=== PATIENT | female | born 1985 | race Caucasian/White ===

== ENCOUNTER → 2019-02-09 13:23 | Outpatient (CLI) | payer MEDICAID, SELFPAY ==
[2019-02-13 13:07] LABS: Age Gdln ACOG Testing 30-65 (.)
[2019-02-13 15:56] LABS: HPV APTIMA, High Risk Negative (Negative)
[2019-02-13 15:57] LABS: HPV Reflexed? YES, CHARGE PATIENT
== END ==
PROVIDERS: Visit Provider Obstetrics & Gynecology
DX: Z12.4 Encounter for screening for malignant neoplasm of cervix (principal)
CPT/HCPCS: 87624; 88175; G0145

== ENCOUNTER → 2023-02-26 | Outpatient (CLI) | payer MEDICAID, SELFPAY ==
--- NOTE | 2023-02-26 11:30 | US_ITS ---
EXAM: US PELVIS TRANSVAGINAL CLINICAL INDICATION: abnormal uterine bleeding TECHNIQUE: Transvaginal pelvic ultrasound was performed with grayscale and color Doppler imaging. Transvaginal imaging was used for better evaluation of the endometrium and adnexa. COMPARISON: No relevant prior studies available. FINDINGS: UTERUS/CERVIX: Uterus measures 4.6 x 9.9 x 6.7 cm. The endometrium measures 3 mm. There is a 5 x 5 x 7 mm echogenic structure in the endometrium which may represent a clot or possibly an endometrial polyp. Anteverted. There is no uterine mass. RIGHT OVARY: The right ovary measures 3.1 x 4.4 x 3.0 cm. Blood flow is present in the right ovary. LEFT OVARY: Left ovary measures 2.1 x 2.9 x 2.2 cm. Blood flow is present in the left ovary. FREE FLUID: None. BLADDER: Empty bladder which cannot be evaluated with this probe. US/Transvaginal Non- IMPRESSION: Echogenic structure in the endometrium which may represent a small clot or perhaps a polyp. If indicated further evaluation with MRI may be beneficial. Electronically Signed: Gio Suárez MD at 0:07 EST ,
--- OUTSIDE RECORDS SUMMARY | 2023-02-26 11:30 | XMS RPT_ITS | CCD ---
Author Name Unknown Address [address] [place] [address] Organization [facility] Care Team Providers Care User Interface Artist Name Role Phone DR АЛЕКСАНДР PRIEST DO Primary Care Physician Shara Blanchard Primary Care Provider [phone] SHARA BLANCHARD Primary Care Unavailabl RANJEET Fortune Attending Unavailable Medications Current Medications Medication Drug Class(es) Dates Sig (Normalized) Sig (Original) amoxicillin 875 mg oral tablet (1 source) Penicillin-class Antibacterial Start: 11-04-2022 End: 11-14-2022 take 1 tablet by mouth twice daily amoxicillin (AMOXIL) 875 mg tablet Indications: Acute non-recurrent maxillary sinusitis Take 1 tablet by mouth twice daily for 10 days. 20 tablet 0 11/04/2022 11/14/2022 Active Completed/Discontinued Medications Medication Drug Class(es) Dates Sig (Normalized) Sig (Original) Ethinyl Estradiol / norgestimate (1 source) Progestin, Estrogen Start: 06-03-2010 take 1 tablet by mouth once daily norgestimate 0.25 mg-ethinyl estradiol 35 mcg (SPRINTEC) 0.25-35 mg-mcg ORAL per tablet Take 1 tablet by mouth once daily. 1 Package 11 06/03/2010 Active Problems Problem Classification Problem Date Documented Da te Episodic/Chronic Abdominal pain (1 source) Abdominal pain; Translations: [Unspecified abdominal pain] Onset: 08-12-2021 Episodic Anxiety disorders (1 source) Anxiety 08-25-2021 Chronic Appendicitis and other appendiceal conditions (1 source) Appendicitis; Translations: [Unspecified appendicitis] Onset: 08-16-2021 Episodic Mycoses (2 sources) Candidiasis of mouth; Translations: [Candidiasis of vagina] 08-25-2021 Episodic Other upper respiratory infections (2 sources) Acute maxillary sinusitis; Translations: [Acute maxillary sinusitis, unspecified] Onset: 11-04-2022 11-04-2022 Episodic Residual codes; unclassified (1 source) Acquired absence of organ; Translations: [Acquired absence of other specified parts of digestive tract] Onset: 08-16-2021 Episodic Residual codes; unclassified (1 source) Pain; Translations: [Pain, unspecified] Onset: 08-16-2021 Episodic Results Test Name Value Interpretation Reference Range Facil ity Vital Signs Date Time Vital Sign Value Performing Clinician Facility 11-04-2022 11:35-0400 Body temperature 98.4 [degF] Ranjeet Schulz MD Work Phone: [facility] 11-04-2022 11:35-0400 Body weight 63.96 kg Ranjeet Schulz MD Work Phone: [facility] 11-04-2022 11:35-0400 Diastolic blood pressure 79 mm[Hg] Ranjeet Schulz MD Work Phone: [facility] 11-04-2022 11:35-0400 Heart rate 75 /min Ranjeet Schulz MD Work Phone: [facility] 11-04-2022 11:35-0400 Respiratory rate 16 /min Ranjeet Schulz MD Work Phone: [facility] 11-04-2022 11:35-0400 SaO2% (BldA) [Mass fraction] 100 % Ranjeet Schulz MD Work Phone: [facility] 11-04-2022 11:35-0400 Systolic blood pressure 115 mm[Hg] Ranjeet Schulz MD Work Phone: [facility] 08-16-2021 10:47-0400 Body temperature 97.7 [degF] [employer] [facility] 08-16-2021 10:47-0400 Diastolic blood pressure 61 mm[Hg] [employer] [facility] 08-16-2021 10:47-0400 Heart rate 59 /min [facility] 08-16-2021 10:47-0400 Reason For Taking VItal Signs [facility] 08-16-2021 10:47-0400 Respiratory rate 18 /min [facility] 08-16-2021 10:47-0400 Systolic blood pressure 93 mm[Hg] [facility] 08-16-2021 07:17-0400 Diastolic blood pressure 68 mm[Hg] [facility] 08-16-2021 07:17-0400 Systolic blood pressure 108 mm[Hg] [facility] 08-16-2021 06:28-0400 Body temperature 97.88 [degF] [facility] 08-16-2021 06:28-0400 Diastolic blood pressure 54 mm[Hg] [facility] 08-16-2021 06:28-0400 Heart rate 58 /min [facility] 08-16-2021 06:28-0400 Reason For Taking VItal Signs [facility] 08-16-2021 06:28-0400 Respiratory rate 18 /min [facility] 08-16-2021 06:28-0400 Systolic blood pressure 84 mm[Hg] [facility] 08-16-2021 03:50-0400 Body temperature 97.88 [degF] [facility] 08-16-2021 03:50-0400 Heart rate 58 /min [facility] 08-16-2021 03:50-0400 Mean blood pressure 72 mm[Hg] [facility] 08-16-2021 03:50-0400 Reason For Taking VItal Signs [facility] 08-16-2021 03:50-0400 Respiratory rate 16 /min [facility] 08-16-2021 01:29-0400 Body temperature 98.06 [degF] [facility] 08-16-2021 01:29-0400 Mean blood pressure 72 mm[Hg] [facility] 08-15-2021 19:37-0400 Body height 167.6 cm [facility] 08-15-2021 19:37-0400 Body weight 64.4 kg [facility] 08-15-2021 19:37-0400 Body weight 22.93 kg/m2 [facility] 08-15-2021 19:25-0400 Body temperature 98.42 [degF] [facility] 08-15-2021 19:25-0400 Mean blood pressure 89 mm[Hg] [facility] 08-15-2021 18:57-0400 Body temperature 98.42 [degF] [facility] 08-15-2021 18:57-0400 Diastolic Blood Pressure NBP 60 1 [facility] 08-15-2021 18:57-0400 Heart rate 76 /min [facility] 08-15-2021 18:57-0400 Mean blood pressure 70 mm[Hg] [facility] 08-15-2021 18:57-0400 Systolic Blood Pressure NBP 105 1 [facility] 08-15-2021 18:44-0400 Diastolic Blood Pressure NBP 63 1 [facility] 08-15-2021 18:44-0400 Heart rate 76 /min [facility] 08-15-2021 18:44-0400 Mean blood pressure 72 mm[Hg] [facility] 08-15-2021 18:44-0400 Systolic Blood Pressure NBP 109 1 [facility] 08-15-2021 18:29-0400 Diastolic Blood Pressure NBP 46 1 [facility] 08-15-2021 18:29-0400 Heart rate 79 /min [facility] 08-15-2021 18:29-0400 Mean blood pressure 58 mm[Hg] [facility] 08-15-2021 18:29-0400 Systolic Blood Pressure NBP 96 1 [facility] 08-15-2021 17:55-0400 Body temperature 99.46 [degF] [facility] 08-15-2021 17:50-0400 Body temperature 99.9 [degF] [facility] 08-15-2021 17:45-0400 Body temperature 99.88 [degF] [facility] 08-15-2021 13:52-0400 Diastolic blood pressure 60 mm[Hg] LEONIDAS LAZO MD [facility] 08-15-2021 13:52-0400 Heart rate 88 /min LEONIDAS LAZO MD [facility] 08-15-2021 13:52-0400 Respiratory rate 20 /min LEONIDAS LAZO MD [facility] 08-15-2021 13:52-0400 Systolic blood pressure 110 mm[Hg] LEONIDAS LAZO MD [facility] 08-15-2021 11:39-0400 Body temperature 98.24 [degF] LEONIDAS LAZO MD [facility] 08-15-2021 11:39-0400 Diastolic blood pressure 82 mm[Hg] LEONIDAS LAZO MD [facility] 08-15-2021 11:39-0400 Heart rate 98 /min LEONIDAS LAZO MD [facility] 08-15-2021 11:39-0400 Respiratory rate 20 /min LEONIDAS LAZO MD [facility] 08-15-2021 11:39-0400 Systolic blood pressure 121 mm[Hg] LEONIDAS LAZO MD [facility] 08-12-2021 19:44-0400 Body height 167.[address] RICKIE RODRIGUEZ MD [facility] 08-12-2021 19:44-0400 Body temperature 98.06 [degF] DR RICKIE RODRIGUEZ MD [facility] 08-12-2021 19:44-0400 Body weight 54.[address] RICKIE RODRIGUEZ MD [facility] 08-12-2021 19:44-0400 Diastolic blood pressure 78 mm[Hg] DR RICKIE RODRIGUEZ MD [facility] 08-12-2021 19:44-0400 Heart rate 86 /min DR RICKIE RODRIGUEZ MD [facility] 08-12-2021 19:44-0400 Respiratory rate 16 /min DR RICKIE RODRIGUEZ MD [facility] 08-12-2021 19:44-0400 Systolic blood pressure 116 mm[Hg] DR RICKIE RODRIGUEZ MD [facility] Encounters Encounter Date Encounter Type Care Provider Facility Start: 11-04-2022 End: 11-04-2022 ambulatory [facility] Facility:[id number] Start: 11-04-2022 End: 11-04-2022 Office outpatient new 30 minutes Ranjeet Schulz MD Work Phone: [facility] [place] Procedures Date Procedure Procedure Detail Performing Clinician Start: 08-15-2021 Appendectomy JHOANAWORTH Taylor EACH DO Plan of Treatment Date Care Activity Detail Author Start: 10-29-2022 Influenza vaccination INFLUENZA (#1) [facility] Start: 02-28-2022 DEPRESSION ASSESSMENT DEPRESSION ASS ESSMENT [facility] Start: 02-07-2016 HPV TESTING HPV TESTING [facility] Start: 2007 PAP TESTING PAP TESTING [facility] Start: 2005 Urine microalbumin profile DTAP,TDAP ,TD (1 - Tdap) [facility] Start: 02-07-2004 HEPATITIS C SCREENING HEPATITIS C REGINO ALEMAN [facility] Start: 02-07-2004 HIV SCREENING HIV SCREENING [facility] Start: 1986 COVID-19 VACCINE (#1) COVID-19 VACCI NE (#1) [facility] Start: 1986 HEPATITIS B (1 of 3 - 3-dose series) HEPATITIS B (1 of 3 - 3-dose series) [facility] Payers Date Payer Category Payer Medicaid [facility] MEDICAID [id number] 2022-Present [phone] [address] [place] [address] Medicaid [id number] 2022 Medicaid [id number] Social History Date Type Detail Facility Start: 06-29-2019 Tobacco smoking status Light t obacco smoker (finding) [facility] Functional Status Date Assessment Result Facility 08-16-2021 Functional Status Time Up in Chair 60 [facility] 08-16-2021 Functional Status Awake, Up to chair [facility] 08-16-2021 Functional Status Room check performed [facility] 08-16-2021 Functional Status [facility] 08-16-2021 Functional Status [facility] 08-15-2021 Functional Status [facility] 08-15-2021 Functional Status [facility] 08-15-2021 Functional Status ice on [facility] 08-15-2021 Functional Status Activity Angy tance Independent [facility] 08-15-2021 Functional Status Standard Safet y ID band on, Call device within reach, Bed in low position, Wheels locked [facility] 08-12-2021 Functional Status Ambulating in rangel, Ambulating in room, Awake, Bathroom privileges [facility] Mental Status Date Assessment Result Facility 08-16-2021 Mental Status Orientation Oriented x 4 [facility] 08-15-2021 Mental Status [facility] 08-15-2021 Mental Status Orientation Oriented x 4 [facility] 08-15-2021 Mental Status [facility] 08-12-2021 Mental Status Oriented x 4 [facility] Progress note 11-04-2022 Note Date & Type Note Facility 11-04-2022 Note HNO ID: [id number] Author: Ranjeet Schulz MD Service: ? Author Type: Physician Type: Progress Notes Filed: 11/04/2022 11:53 AM Note Text: Abbey SINGLETON is a 37 year old FEMALE who presents with Sinusitis (Sinus pressure headache bilateral eye pain covid + 2 weeks ago) 37 years old female with symptoms of sinus pressure headache pain around the eyes for the last 2 weeks Patient stated that she had symptom of congestion lot of drainage about 2 weeks ago at that time she was tested positive for COVID as well Now repeat test has been negative Her sinus symptom has been ongoing not getting better also have some ear pressure No shortness of breath, no vomiting or diarrhea Sinusitis Associated symptoms include congestion. Pertinent negatives include no chills. History reviewed. No pertinent past medical history. There is no problem list on file for this patient. Current Outpatient Medications Medication Sig Dispense Refill norgestimate 0.25 mg-ethinyl estradiol 35 mcg (SPRINTEC) 0.25-35 mg-mcg ORAL per tablet Take 1 tablet by mouth once daily. (Patient not taking: Reported on 11/04/2022) 1 Package 11 LORazepam 0.5 mg ORAL Tab Take 1 tablet daily, as needed. (Patient not taking: Reported on 11/04/2022) 0 No current facility-administered medications for this visit. Social History Tobacco Use Smoking status: Never Smokeless tobacco: Never Tobacco comments: 3 cigarettes per day Substance Use Topics Alcohol use: No Drug use: No Alcohol Use: No Tobacco Use: Never History reviewed. No pertinent family history. Review of Systems Constitutional: Negative for chills and fever. HENT: Positive for congestion and sinus pain. Respiratory: Negative. Cardiovascular: Negative. Gastrointestinal: Negative. BP 115/79 Pulse 75 Temp 98.4 Resp 16 Wt 141 lb (64.0kg) SpO2 100% LMP 10/18/2022 Physical Exam Vitals reviewed. Constitutional: General: She is not in acute distress. Appearance: She is not ill-appearing or toxic-appearing. HENT: Right Ear: Tympanic membrane, ear canal and external ear normal. Left Ear: Tympanic membrane, ear canal and external ear normal. Nose: Congestion (Mild) present. Comments: Moderate paranasal sinuses tenderness Mouth/Throat: Mouth: Mucous membranes are moist. Pharynx: Oropharynx is clear. No posterior oropharyngeal erythema. Cardiovascular: Rate and Rhythm: Normal rate and regular rhythm. Heart sounds: Normal heart sounds. Pulmonary: Effort: Pulmonary effort is normal. Breath sounds: Normal breath sounds. Musculoskeletal: Cervical back: Normal range of motion and neck supple. Neurological: Mental Status: She is alert. ASSESSMENT/PLAN: 1. Acute non-recurrent maxillary sinusitis - ICD9: 461.0, ICD10: J01.00 - AMOXICILLIN 875 MG TABLET Saline nasal spray OTC med for symptom relief as needed Follow-up with your doctor for pollution care Take antibiotic as per prescription Explained details Patient understand and agreed Ranjeet Schulz MD [facility] Instructions 11-04-2022 Patient Instructions Note Date & Type Note Facility 11-04-2022 Instructions Ranjeet Schulz MD - 11/04/2022 11:52 AM EDT Saline nasal spray OTC med for symptom relief as needed Follow-up with your doctor for pollution care Take antibiotic as per prescription Explained details documented in this encounter [facility] History of Present illness Narrative 11-04-2022 Ranjeet Schulz MD - 11/04/2022 11:47 AM EDT Note Date & Type Note Facility 11-04-2022 History of Presen t illness Narrative Abbey SINGLETON is a 37 year old FEMALE who presents with Sinusitis (Sinus pressure headache bilateral eye pain covid + 2 weeks ago) 37 years old female with symptoms of sinus pressure headache pain around the eyes for the last 2 weeks Patient stated that she had symptom of congestion lot of drainage about 2 weeks ago at that time she was tested positive for COVID as well Now repeat test has been negative Her sinus symptom has been ongoing not getting better also have some ear pressure No shortness of breath, no vomiting or diarrhea Sinusitis Associated symptoms include congestion. Pertinent negatives include no chills. History reviewed. No pertinent past medical history. There is no problem list on file for this patient. Current Outpatient Medications Medication Sig Dispense Refill norgestimate 0.25 mg-ethinyl estradiol 35 mcg (SPRINTEC) 0.25-35 mg-mcg ORAL per tablet Take 1 tablet by mouth once daily. (Patient not taking: Reported on 11/04/2022) 1 Package 11 LORazepam 0.5 mg ORAL Tab Take 1 tablet daily, as needed. (Patient not taking: Reported on 11/04/2022) 0 No current facility-administered medications for this visit. Social History Tobacco Use Smoking status: Never Smokeless tobacco: Never Tobacco comments: 3 cigarettes per day Substance Use Topics Alcohol use: No Drug use: No Alcohol Use: No Tobacco Use: Never History reviewed. No pertinent family history. Review of Systems Constitutional: Negative for chills and fever. HENT: Positive for congestion and sinus pain. Respiratory: Negative. Cardiovascular: Negative. Gastrointestinal: Negative. BP 115/79 Pulse 75 Temp 98.4 Resp 16 Wt 141 lb (64.0kg) SpO2 100% LMP 10/18/2022 Physical Exam Vitals reviewed. Constitutional: General: She is not in acute distress. Appearance: She is not ill-appearing or toxic-appearing. HENT: Right Ear: Tympanic membrane, ear canal and external ear normal. Left Ear: Tympanic membrane, ear canal and external ear normal. Nose: Congestion (Mild) present. Comments: Moderate paranasal sinuses tenderness Mouth/Throat: Mouth: Mucous membranes are moist. Pharynx: Oropharynx is clear. No posterior oropharyngeal erythema. Cardiovascular: Rate and Rhythm: Normal rate and regular rhythm. Heart sounds: Normal heart sounds. Pulmonary: Effort: Pulmonary effort is normal. Breath sounds: Normal breath sounds. Musculoskeletal: Cervical back: Normal range of motion and neck supple. Neurological: Mental Status: She is alert. ASSESSMENT/PLAN: 1. Acute non-recurrent maxillary sinusitis - ICD9: 461.0, ICD10: J01.00 - AMOXICILLIN 875 MG TABLET Saline nasal spray OTC med for symptom relief as needed Follow-up with your doctor for pollution care Take antibiotic as per prescription Explained details Patient understand and agreed Ranjeet Schulz MD documented in this encounter [facility] Discharge instructions 08-16-2021 Note Date & Type Note Facility 08-16-2021 Hospital Discharg e instructions Patient Education 08/16/2021 13:09:28 8- Post Op General Surgery (01/2020)(CUSTOM) What to Do After Your General Surgery This sheet will give you general information on what to do when you are home after surgery. However, you should always follow any specific instructions given to you by your surgeon. Pain Medication Please follow the directions on the label of your medication and use your discharge medication list provided by the hospital. Do not take pain medication on an empty stomach. This may cause a stomachache. Constipation is common while taking oral pain medication after surgery. Use a stool softener (Colace) or gentle laxative (milk of magnesia) if needed. As soon as your pain allows, use less of any narcotic pain medication. You may take [id number]-[id number] pain medication if you no longer need your prescribed pain medication. Spbp-fws-auxeysw pain medications are Tylenol or Advil/Motrin (ibuprofen). Do not take Tylenol if you are still taking [place] or Percocet. They are the same type of medication, and too much acetaminophen can hurt your liver. Activity It is OK to use stairs. Do not lift more than 15 pounds. After surgery, you may feel tired. Rest is important for healing. Slowly increase your activity level by walking and doing normal activities as you feel comfortable. Do not drive while taking narcotic pain medication. They should be out of your system for [address]. Diet Eating smaller meals instead of three large meals is good. This may help with your appetite and nutrition. Good nutrition will help you heal. Follow diet instructions that you were taught after surgery. Infection Prevention Washing your hands is one of the best ways to prevent infection. Always wash your hands before and after touching your incision or bandage. Hands carry germs that can cause infections. Try not to touch your incision. Keep the Incision Clean Wear clean, loose-fitting clothes to prevent clothes from rubbing on the incision. Put clean sheets on your bed when you get home. Do not let other people or animals touch the incision. Showering You may start to shower 48 hours after your surgery. Use a clean washcloth and towel on your incision before you use it on any other area of your body. Adjust the shower spray to gentle and use warm water. Gently wash over your incision using antibacterial soap and water and pat it dry. Do not rub the incision. Do not soak or submerge in the bathtub or hot tub until your surgeon says it is OK. Wound Care If you have a clear, see-through bandage over your incision(s), you may shower with it in place. The bandage is waterproof. oIt is normal to see a small amount of reddish fluid under the clear bandage. You may remove your bandage after 48 hours. If you are in the hospital longer than 48 hours, it is OK to remove your bandage when you get home. If you have thin white tape strips (Steri-Strips) over your incision, keep them dry. Do not remove them unless they begin curling up at the sides and are almost falling off. Winsome or sutures are generally removed within seven to 14 days at your follow-up appointment. Drain Care If you have a drain, empty it two to three times per day or if it gets half full. Write down the time it was emptied and amount of fluid on a piece of paper. Bring your paper with times and fluid amounts to your follow-up appointment to show your surgeon. Call Your Doctor If: You have a fever of 101 degrees or higher. It is not uncommon to have a low-grade fever after surgery. You have new redness or fluid around the incision that smells bad or looks like pus. Your skin is very painful, red, warm and/or swollen around the incision. You have a lot of bleeding (push with pressure on the area if this happens). You have bad stomach pain or you start throwing up. If you are unable to reach your surgeon, go to the hospital. Follow Up If a follow-up appointment has not been made, please call your surgeon s office. Most appointments are 10 14 days after surgery. If you have any problems or concerns before then, call the surgeon s office. Follow Up Care 08/15/2021 13:22:40 With:TOMER PHIPPS DO, Surgery Address: [address] [place] [address] [place] [address]- [phone] When:1-2 days Comments:Please call the office on Tuesday for a follow-up appointment within 1 to 2 weeks. [facility] Evaluation + Plan note 08-15-2021 Note Date & Type Note Facility Abnormal diagnostic test - a ppy CT and exam consistent with acute appendicitis. We will proceed with laparoscopic appendectomy possible open. Patient agreeable to plan. Orders: Bed Request - Admit [facility] Hospital Discharge instructions 08-12-2021 Note Date & Type Note Facility 08-12-2021 Hospital Discharg e instructions Patient Education 08/12/2021 21:08:53 Abdominal Pain, Unknown Cause, (Female) Unknown Causes of Abdominal Pain (Female) The exact cause of your belly (abdominal) pain is not clear. This does not mean that this is something to worry about. Everyone likes to know the exact cause of the problem. But sometimes with belly pain, there is no clear-cut cause, and this could be a good thing. The good news is that your symptoms can be treated, and you will feel better. Your condition does not seem serious now. But sometimes the signs of a serious problem may take more time to appear. For this reason, it is important for you to watch for any new symptoms, problems, or worsening of your condition. Over the next few days, the abdominal pain may come and go. Or it may be constant. Other common symptoms can include nausea and vomiting. Sometimes it can be difficult to tell if you feel nauseous. You may just feel bad and not connect that feeling to nausea. Constipation, diarrhea, and a fever may go along with the pain. The pain may continue even if treated correctly over the following days. Depending on how things go, sometimes the cause can become clear and may need more or different treatment. Additional evaluations, medicines, or tests may also be needed. Home care Your healthcare provider may prescribe medicine for pain, symptoms, or an infection. Follow the healthcare provider's instructions for taking these medicines. General care Rest as much as you can until your next exam. No strenuous activities. Try to find positions that ease discomfort. A small pillow placed on the abdomen may help relieve pain. Something warm on your abdomen (such as a heating pad) may help, but be careful not to burn yourself. Diet Don t force yourself to eat, especially if having cramps, vomiting, or diarrhea. Water is important so you don't get dehydrated. Soup may also be good. Sports drinks may also help, especially if they are not too acidic. Don't drink sugary drinks as this can make things worse. Take liquids in small amounts. Don t guzzle them. Caffeine sometimes makes the pain and cramping worse. Don t take dairy products if you have vomiting or diarrhea. Don't eat large amounts at a time. Wait a few minutes between bites. Eat a diet low in fiber (called a low-residue diet). Foods allowed include refined breads, white rice, fruit and vegetable juices without pulp, tender meats. These foods will pass more easily through the intestine. Don t have whole-grain foods, whole fruits and vegetables, meats, seeds and nuts, fried or fatty foods, dairy, alcohol and spicy foods until your symptoms go away. Follow-up care Follow up with your healthcare provider, or as advised, if your pain does not begin to improve in the next 24 hours. Call 911 Call 911 if any of these occur: Trouble breathing Confusion Fainting or loss of consciousness Rapid heart rate Seizure When to seek medical advice Call your healthcare provider right away if any of these occur: Pain gets worse or moves to the right lower abdomen New or worsening vomiting or diarrhea Swelling of the abdomen Unable to pass stool for more than 3 days Fever of 100.4 F (38 C) or higher, or as directed by your healthcare provider. Blood in vomit or bowel movements (dark red or black color) Yellow color of eyes and skin (jaundice) Weakness, dizziness Chest, arm, back, neck, or jaw pain Unexpected vaginal bleeding or missed period Can't keep down liquids or water and you are getting dehydrated [id number] [employer]. [address] [place] [address]. All rights reserved. This information is not intended as a substitute for professional medical care. Always follow your healthcare professional's instructions. Follow Up Care 08/12/2021 19:39:39 With:АЛЕКСАНДР PRIEST Address: [address] [place] [address]- [phone] Business (1) When:1-2 days Comments:Take Tylenol, ibuprofen for pain. Return if worsening severe pain vomiting fever or other concerning symptoms. Follow-up closely with your doctor. You may return anytime for reevaluation as well. [facility] Evaluation + Plan note Note Date & Type Note Facility Evaluation + Plan note No data available for this section [facility] Evaluation note Note Date & Type Note Facility documented in this encounter [facility] Discharge instructions Note Date & Type Note Facility Hospital Discharge instructions No data available for this section [facility] Progress note Note Date & Type Note Facility Progress note No data available for this section [facility] Summary Purpose Family History No Family History Records FoundNo Family History Records Found Advance Directives No Advanced Directives Records FoundNo Advanced Directives Records Found Additional Source Comments Care Team (unrecognized sect ion and content) Care Team (unrecognized sect ion and content) Care Team Personnel Name: АЛЕКСАНДР PRIEST DO Position: P4 Physician - Primary Care Med Service: Active Provider Member Role: Primary Care Physician Address: Address: [address] [facility] [place] [address]- [place] Care Team Related Persons Name: JEANNIE SINHA Name: JEANNIE SINHA Name: JEANNIE SINHA Name: PETRA SINGLETON Address: Home [address] [place], [place] [id number] [place] INFORMATION SOURCE (unrecogn ized section and content) DATE CREATED AUTHOR AUTHOR'S MARLENY SCHMITZ 11/05/2022 [facility] nter Source Comments (unrecognize d section and content) In the event this informatio n is protected by the Federal Confidentiality of Alcohol and Drug Abuse Patient Records regulations: The Federal rules restrict any use of the information to criminally investigate or prosecute any alcohol or drug abuse patient.[facility] Reason for Visit (unrecogniz ed section and content) FOR RECORDS PERTAINING TO PATIENTS WHO ARE OR HAVE BEEN ENROLLED IN A CHEMICAL DEPENDENCY/SUBSTANCEABUSE PROGRAM, SOME INFORMATION MAY BE OMITTED. This clinical summary was aggregated from multiple sources. Caution should be exercised in using it in the provision of clinical care. This summary normalizes information from multiple sources, and as a consequence, information in this document may materially change the coding, format and clinical context of patient data. In addition, data may be omitted in some cases. CLINICAL DECISIONS SHOULD BE BASED ON THE PRIMARY CLINICAL RECORDS. [employer] provides no warranty or guarantee of the accuracy or completeness of information in this document.
== END | disposition home or self-care (01) ==
LOC: US 11:27
PROVIDERS: Referring Provider Nurse Practitioner Women's Health; Visit Provider Nurse Practitioner Women's Health
DX: N92.4 Excessive bleeding in the premenopausal period (principal)
CPT/HCPCS: 76830

== ENCOUNTER 2023-04-12 08:41 | Day surgery (SDC) | payer MEDICAID, SELFPAY ==
[2023-04-09 10:09] LABS: Hematocrit 40.1 % (37-47); Hemoglobin 13.4 g/dL (12.0-15.0); Mean Corp Hgb Conc 33.4 g/dL (32-36); Mean Corpuscular Hgb 30.4 pg (27.0-32.0); Mean Corpuscular Volume 90.9 fL (81-99); Mean Platelet Vol. 11.1 fl (6.2-12.0); Platelet Count 297 K/mm3 (150-450); RBC Distribution Width CV 12.1 % (11.6-14.6); RBC Distribution Width SD 40.1 fl (35.1-43.9); Red Blood Count 4.41 M/mm3 (4.2-5.4); White Blood Count 4.3 K/mm3 (4.4-11.0)
--- NOTE | 2023-04-12 | EMB_PTH ---
PATHOLOGY RESULTS PATIENT: ABBEY SINGLETON [place] [facility] [place][id number] AGE/SX: 38/F ROOM: RE04/12/[address]: Dr. Queenie Voss DO : 1985 BED: DIS: 04/12/2023 SPEC #: [id number] RECD: 04/12/23 13:45 STATUS: LUKE PAULINE #: [id number] MCKENNA: 04/12/23 00:[address]: Queenie Voss DEPT: SURGICAL PATHOLOGY RECD BY: Chen Henley ENTERED: 04/13/23 08:16 SP TYPE: ENDOM BX/C BEVERLY DR: Dr. Mikhail Rosales DO Tissues: Endometrium, NOS Procedures: Surgery Specimen Level IV HEADER OPERATION: Hysteroscopy, dilation and curettage, pulpectomy, Symphion PRE-OP DIAGNOSIS: Abnormal vaginal bleeding in premenopausal patient TISSUE SUBMITTED: Endometrial curettings MICROSCOPIC DIAGNOSIS Endometrial curettings: Secretory endometrium. SJ:reese 04/14/2023 MICROSCOPIC DESCRIPTION Slides are reviewed. GROSS DESCRIPTION Received in fixative is one container labeled with the patient's name and designated endometrial curettings. The specimen consists of multiple irregular fragments of duncan soft tissue that in aggregate measure 4.0 x 3.0 x 0.2 cm. The specimen is totally submitted in two cassettes. / KYRIE:reese 04/13/2023 TC:4 CPT: 69706
[2023-04-12 10:13] VITALS: BP 92/60; PULSE 58; RESP 16; TEMP 36.7; O2SAT 100; BMI 21.7
[2023-04-12] MEDS: Lactated Ringers 1,000 ML 15 ML IV (10:18)
[2023-04-12 10:21] LABS: Internal QC Validated? YES +Cl - CLEAR BKGD; Pregnancy, Urine Negative Negative; Record Kit Lot#,Urine Preg 718086
--- NOTE | 2023-04-12 10:55 | HP.PCM_ITS ---
History and Physical Date of Admission: 04/12/23 Intake Vital Signs 07/05/2309:10 03/03/2408:10 03/25/2415:17 03/25/2415:17 Height 5 ft 6 in 5 ft 6 in 5 ft 6 in 5 ft 6 in Weight: 141 lb 4 oz 137 lb 2 oz BMI 22.8 22.1 BP 112/72 119/77 Intake Visit Reasons: surgical consult/needs 20 min Consulting Psychologist Required: No Is patient in pain?: No Allergies No Known Allergies Allergy (Verified 03/25/23 16:17) Medications Lactobacillus 25 billion cell-Bifido 25 billion [id number]-[id number]-yjckn capsule cap PO 07/05/22 [History Confirmed 03/25/23] multivitamin 1 tab PO DAILY 07/05/22 [History Confirmed 03/25/23] Post menopausal: No Patient : No : No PFSH Medical History Abnormal vaginal bleeding in premenopausal patient Surgical History S/P appendectomy Family History Father Cancer 2018 Social History household members: children number of children: 2 current occupational status: employed current occupation: [employer] Smoking Status: Former smoker Electronic Cigarette Use: with nicotine alcohol intake: current alcohol intake frequency: a few times a week substance use type: does not use seatbelt use: always do you feel safe at home: Yes additional social history: Boyfriend- Carlos Marlo [employer] [facility] surgical consult/needs 20 min Details: ABBEY DAWKINS is a 38 year old who presents for discussion about a D&C due to abnormal bleeding. It started on 02/05/23. She had a period that lasted her typical 8-9 days and stopped. She started to spot immediately after her cycle x 2 weeks. She then started her next cycle that lasted 8-9 followed by some spotting now. She is not on control or hormone replacement. She tried nuvaring and pills in the past that did not make her feel well. ultrasound showed the following: EXAM: US PELVIS TRANSVAGINAL CLINICAL INDICATION: abnormal uterine bleeding TECHNIQUE: Transvaginal pelvic ultrasound was performed with grayscale and color Doppler imaging. Transvaginal imaging was used for better evaluation of the endometrium and adnexa. COMPARISON: No relevant prior studies available. FINDINGS: UTERUS/CERVIX: Uterus measures 4.6 x 9.9 x 6.7 cm. The endometrium measures 3 mm. There is a 5 x 5 x 7 mm echogenic structure in the endometrium which may represent a clot or possibly an endometrial polyp. Anteverted. There is no uterine mass. RIGHT OVARY: The right ovary measures 3.1 x 4.4 x 3.0 cm. Blood flow is present in the right ovary. LEFT OVARY: Left ovary measures 2.1 x 2.9 x 2.2 cm. Blood flow is present in the left ovary. FREE FLUID: None. BLADDER: Empty bladder which cannot be evaluated with this probe. US/Transvaginal Non- IMPRESSION: Echogenic structure in the endometrium which may represent a small clot or perhaps a polyp. If indicated further evaluation with MRI may be beneficial. History 2 Elective abortions Hx Para 2 Spontaneous abortions Hx # Term Pregnancies Ectopic pregnancies Hx # Pregnancies Multiple births # of living children 2 Past Pregnancies Del. Date Name GA/Weeks Outcome Route Bth Weight Gen Labor Lgth Anesthesia Del Locatn Provider FOB 07/02/09 Jose C Dawkins live - f ull term Female epidural [facility] 05/28/11 Andreas Dawkins live - fu ll term Male epidural [facility] ROS Const ROS Unobtainable: All systems reviewed & are unremarkable except as noted in H Resp Resp: Reports system reviewed and no additional complaints, except as documented; Denies cough GI GI: Reports as per HPI Psych Psych: Reports system reviewed and no additional complaints, except as documented Exam Const General: cooperative, healthy appearing, comfortable and no acute distress Resp Effort & Inspection: normal respiratory effort Skin General: no rashes or lesions noted Psych Appearance: grossly normal Speech and Movement: speech and movement normal Coding Level of Care Code Off vis,est,level 4 Diagnoses Abnormal vaginal bleeding in premenopausal patient N92.4 Assessment and Plan Assessment and Plan (1) Abnormal vaginal bleeding in premenopausal patient: Status: Acute Plan: After discussing the patient's diagnosis and treatment plan options, patient wishes to proceed with surgical management. I have discussed with the patient t he risks, benefits, and alternatives of the procedure which include but are not limited to risks of anesthesia, bleeding, infection, possible damage to bowel, bladder, or surrounding vasculature which could lead to additional surgery to evaluate any complications. Patient agrees to procedure and wishes to proceed. ACOG/uptodate references given for additional information regarding procedure. plan is for a hysteroscopy diltion and curettage. pt will decide if she wants a progesterone IUD placed also after the procedure.
--- NOTE | 2023-04-12 11:42 | DCINST_ITS ---
Discharge Instructions Diet Discharge Diet: No restrictions Activity Discharge Activity: Return to Normal Activity, May Shower and May Take a Tub Bath (after 1 week) May resume sexual activity in: 1-2 weeks Weight Bearing Status: Weight bearing as tolerated Lifting Restrictions: none Dressing / Incision Call your doctor if you observe: Fever of 101 or Higher, Using more than 1 pad per hour, Shortness of breath and Uncontrolled pain Follow Up Care Please Follow Up With: Queenie Voss DO When: Call [phone] to schedule appointment. Test Results: Test results from this visit will be discussed in further detail at your follow- up appointment, if applicable. Discharge Plan Admission Attending Provider: Queenie Voss Primary Care Provider: Mikhail Rosales Discharge Orders/Prescriptions Prescriptions: No Action multivitamin Tablet 1 tab PO DAILY Lacto no.69-Iyugnp-WZT-larch 25B cell-25B cell-50 mg capsule 1 cap PO DAILY Referrals / Follow Up: Mikhail Rosales DO [Primary Care Provider] - Disposition Disposition (needs filled in before D/C Order can be placed): Home, Self Care
[2023-04-12] MEDS: Lidocaine 1% (20 ml mdv) 20 ML Vial (12:13)
--- NOTE | 2023-04-12 12:21 | OP.PCM_ITS ---
Problems Associated Problem List Diagnoses (1) Abnormal vaginal bleeding in premenopausal patient: Report of Operation Date of Procedure: 04/12/23 Pre-Operative Diagnosis: uterine polyp, abnormal uterine bleeding Post-Operative Diagnosis: uterine polyp, abnormal uterine bleeding Surgery/Procedure Performed:: hysteroscopy, dilation and curettage, polypectomy Description of Surgical Findings:: normal vagina and cerivx, polyp at the fundus and thickened tissue on the lateral aspects of the uterus. Surgeon: Queenie Voss vice president commercial bank: None Type of Anesthesia: MAC/Supplemental/Local Specimen's removed: endometrial curetting's Drains: none Estimated Blood Loss (mL): 5cc Description of Procedure: Patient was prepped and draped in a normal sterile fashion under MAC anesthesia. A weighted speculum was placed in the vagina and the anterior lip of the cervix was grasped with a single-tooth tenaculum. A paracervical block was placed with 1% lidocaine. Uterine sounded to 11 cm. The Cervix was progressively dilated to allow passage of a 5 mm hysteroscope. The lining was fully visualized and noted to have a polyp appearing structure at the fundus of the uterus along with thickened tissue on the lateral aspects of the uterus . Using the symphion device, a Curettage was performed and tissue was, sent to pathology. All instruments were removed from the vagina and excellent hemostasis was noted. Patient was awoken and taken to recovery in stable condition. Fluid deficit : 400 cc Procedure Start Time: 12:11 Procedure Stop Time: 12:17 Complications none Admit VTE Documentation VTE Present on Admission: No VTE Mechan Device Prophylaxis: SCD's Multi Select Codes Urinary/Genital Urinary/Genital CPT Codes: 05056 Hysteroscopy,EMC, Polypectomy
[2023-04-12 12:30] VITALS: BP 90/51; BP 92/60; PULSE 58; RESP 16; TEMP 36.4; O2SAT 98
[2023-04-12 12:35] VITALS: BP 85/48; BP 92/60; PULSE 56; RESP 16; O2SAT 98
[2023-04-12 12:40] VITALS: BP 92/60; BP 97/59; PULSE 54; RESP 16; O2SAT 100
[2023-04-12 12:45] VITALS: BP 92/60; BP 95/70; PULSE 58; RESP 16; TEMP 36.2; O2SAT 100
== END 2023-04-12 13:21 | disposition home or self-care (01) ==
LOC: SDC 08:43 → AC 08:44
PROVIDERS: PCP Family Medicine; Referring Provider Obstetrics & Gynecology; Visit Provider Obstetrics & Gynecology
PROC: 0UB98ZZ Excision of Uterus, Via Natural or Artificial Opening Endoscopic (ICD-10-PCS; CPT 58558; principal; 2023-04-12 11:35)
DX: N92.4 Excessive bleeding in the premenopausal period (principal); N84.0 Polyp of corpus uteri; Z87.891 Personal history of nicotine dependence
CPT/HCPCS: 58558; 00952; 36415; 81025; 85027; 86850; 86900; 86901; 88305; J7120; J2405

== ENCOUNTER → 2023-07-21 | Outpatient (CLI) | payer MEDICAID, SELFPAY ==
[2023-07-28 12:09] LABS: HPV APTIMA, High Risk Negative (Negative)
== END | disposition home or self-care (01) ==
LOC: LABSPEC 12:28
PROVIDERS: Referring Provider Advanced Practice Midwife; Visit Provider Advanced Practice Midwife
DX: Z12.4 Encounter for screening for malignant neoplasm of cervix (principal)
CPT/HCPCS: 87624; 88175; G0145